=== PATIENT | female | born 1985 | race African-American/Black ===

== ENCOUNTER 2022-07-24 19:59 | Emergency (ER) | payer OTHER ==
[~2022-07-24] VITALS: Ht 157.5 cm; Wt 86.0 kg
[2022-07-24 20:34] VITALS: BP 139/91
== END 2022-07-25 01:30 | disposition left against medical advice (07) ==
LOC: ER 19:59
DX: Z53.21 Procedure and treatment not carried out due to patient leaving prior to being seen by health care provider (principal)